=== PATIENT | male | born 1980 | race Caucasian/White ===

== ENCOUNTER 2019-06-09 14:58 | Outpatient (CLI) | payer OTHER, SELFPAY ==
[2019-06-09 17:32] LABS: Basophils Percent Auto 0.3 % (0.2-1.2); Eosinophils Absolute Auto 0.2 K/mm3 (0-0.3); Eosinophils Percent Auto 2.7 % (0-4.4); Hematocrit 46.9 % (42.0-52.0); Hemoglobin 15.6 g/dL (14.0-18.0); Immature Granulocyte Absolute 0.02 K/mm3 (0.00-0.031); Immature Granulocyte Percent A 0.3 % (0-0.5); Lymphocytes Absolute Auto 2.36 K/mm3 (0.9-3.2); Lymphocytes Percent Auto 33.9 % (18.3-44.2); Mean Corpuscular HGB Conc 33.3 g/dl (32-36); Mean Corpuscular Hemoglobin 30.1 pg (26-34); Mean Corpuscular Volume 90.5 fl (80-100); Mean Platelet Volume 9.7 fl (7.4-10.4); Monocytes Absolute Auto 0.6 K/mm3 (0.1-0.6); Monocytes Percent Auto 8.6 % (2.6-8.5); Neutrophils Absolute Auto 3.8 K/mm3 (1.3-6.7); Neutrophils Percent Auto 54.2 % (45.5-73.1); Platelet Count Result 245 k/mm3 (150-375); Red Blood Count 5.18 M/mm3 (4.6-6.20); Red Cell Distribution Width 12.3 % (11.5-14.5)
[2019-06-09 17:45] LABS: Alanine Aminotransferase 31 U/L (4-50); Albumin Level 5.1 g/dL (3.5-5.1); Alkaline Phosphatase 58 U/L (38-126); Aspartate Amino Transferase 33 U/L (17-59); Bilirubin,Total 0.5 mg/dL (0.2-1.3); Blood Urea Nitrogen 19 mg/dL (9-20); Calcium 9.6 mg/dL (8.4-10.2); Carbon Dioxide 29 mmol/L (22-30); Chloride 95 mmol/L (98-107); Cholesterol 157 mg/dL (0-200); Estimated Glomerular Filt Rate > 60; Glucose 97 mg/dL (75-110); HDL Direct 41 mg/dL; Potassium 4.5 mmol/L (3.4-5.0); Sodium 140 mmol/L (137-145); Triglycerides 165 mg/dL (<150)
[2019-06-09 17:55] LABS: LDL Cholesterol Direct 91 mg/dL
== END 2019-06-09 14:59 | disposition home or self-care (01) ==
LOC: ANHLAB 15:20
DX: N28.1 Cyst of kidney, acquired (principal); I10 Essential (primary) hypertension; E78.5 Hyperlipidemia, unspecified
CPT/HCPCS: 36415; 80053; 80061; 85025

== ENCOUNTER 2019-06-09 16:54 | Outpatient (CLI) | payer OTHER, SELFPAY ==
--- NOTE | ~2019-06-09 | US_ITS ---
US renal BI 06/09/2019 17:10 Procedure: Realtime transabdominal ultrasound of the kidneys and bladder. Indication: Renal cysts Comparison: No prior studies for comparison. Findings: Renal echotexture is normal bilaterally without hydronephrosis, contour deforming solid mas s or renal calculus. There is a right renal cyst measuring 3.7 x 3.7 x 3.1 cm The right kidney measur es 9.9 cm and left kidney measures 11.2 cm. Bladder within normal limits. Impression: 1: 3.7 cm right renal cyst. Reviewed, dictated and finalized at location A. 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
== END 2019-06-09 16:55 ==
DX: N28.1 Cyst of kidney, acquired (principal)
CPT/HCPCS: 76775

== ENCOUNTER 2019-06-15 12:42 | Emergency (ER) | payer OTHER, SELFPAY ==
--- NOTE | ~2019-06-15 | XR_ITS ---
EXAMINATION: XR chest 2V DATE: 06/15/2019 13:24 INDICATION: Chest pain. Shortness of breath. TECHNIQUE: Frontal and lateral views of the chest were obtained. COMPARISON: None. FINDINGS: The chest demonstrates clear lungs without pneumonia, pleural effusion, or pneumothorax. Th e heart size is normal. IMPRESSION: 1. No acute cardiopulmonary disease. Reviewed, dictated and finalized at location A. STANT PRINCIPAL
[2019-06-15 12:46] VITALS: BP 132/79; PULSE 75; RESP 20; TEMP 36.7; O2SAT 100
--- NOTE | 2019-06-15 12:47 | ED_ITS ---
I attest that this documentation has been prepared under the direction and in the presence of Gilmar Moncada MD. 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 sitting eating lunch and stood up everything went black fell and was caught and lowered to the floor chest tightness and SOB hx of syncopal episode - 6 years ago - cardio work up was normal recent hematuria 72-48 hours ago but has been clear for the past 48 hours lost 28lbs over the past 2 months - unplanned Dr. 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 Iyer in [facility] - supposed to see today Related Data Home Medications Medication Instructions Recorded Confirmed atenolol 50 mg PO DAILY 06/15/19 lisinopril 10 mg PO DAILY 06/15/19 Allergies Allergy/AdvReac Type Severity Reaction Status Date / Time Tetracyclines Allergy Rash Verified 06/15/19 12:54 [facility] Social History Social History Gender identity (if verbalized by the patient): Male Course Vital Signs Vital signs: Vital Signs Temperature 98.0 F 06/15/19 12:46 Pulse Rate 75 06/15/19 12:46 Respiratory Rate 06/15/19 12:46 Blood Pressure 132/79 06/15/19 12:46 Pulse Oximetry 100 06/15/19 12:46 Temperature 98.0 F 06/15/19 12:46 Pulse Rate 75 06/15/19 12:46 Respiratory Rate 06/15/19 12:46 Blood Pressure 132/79 06/15/19 12:46 Pulse Oximetry 100 06/15/19 12:46 Discharge Plan Discharge Prescriptions: No Action lisinopril 10 mg Tablet 10 mg PO DAILY RF: 0 atenolol 50 mg Tablet 50 mg PO DAILY RF: 0
--- NOTE | 2019-06-15 12:49 | ECG_ITS ---
Measurements Intervals [place] Rate: 56 P: 29 [place]: 240 QRS: 49 QRSD: 88 T: 46 QT: 379 QTc: 367 Interpretive Statements SINUS BRADYCARDIA WITH SINUS ARRHYTHMIA WITH FIRST DEGREE AV BLOCK ABNORMAL ECG Electronically Signed On 06-16-2019 6:50:01 CRYPTOGRAPHY TEACHER by Lebron Mitchell D.O.
[2019-06-15 13:11] LABS: Basophils Percent Auto 0.4 % (0.2-1.2); Eosinophils Absolute Auto 0.1 K/mm3 (0-0.3); Eosinophils Percent Auto 2.7 % (0-4.4); Hematocrit 45.6 % (42.0-52.0); Hemoglobin 15.2 g/dL (14.0-18.0); Immature Granulocyte Absolute 0.01 K/mm3 (0.00-0.031); Immature Granulocyte Percent A 0.2 % (0-0.5); Lymphocytes Percent Auto 31.6 % (18.3-44.2); Mean Corpuscular HGB Conc 33.3 g/dl (32-36); Mean Corpuscular Volume 89.9 fl (80-100); Monocytes Absolute Auto 0.3 K/mm3 (0.1-0.6); Monocytes Percent Auto 6.5 % (2.6-8.5); Neutrophils Absolute Auto 2.8 K/mm3 (1.3-6.7); Neutrophils Percent Auto 58.6 % (45.5-73.1); Platelet Count Result 229 k/mm3 (150-375); Red Blood Count 5.07 M/mm3 (4.6-6.20); Red Cell Distribution Width 12.2 % (11.5-14.5); White Blood Count 4.8 K/mm3 (4.5-10.0)
[2019-06-15 13:22] LABS: Blood Urea Nitrogen 18 mg/dL (9-20); Calcium 9.1 mg/dL (8.4-10.2); Carbon Dioxide 28 mmol/L (22-30); Chloride 96 mmol/L (98-107); Estimated CRCL calculation 107 ml/min; Estimated Glomerular Filt Rate > 60; Glucose 158 mg/dL (75-110); INR 0.9; Potassium 4.4 mmol/L (3.4-5.0); Prothrombin Time 12.3 Seconds (11.1-14.7); Sodium 137 mmol/L (137-145)
[2019-06-15 13:23] LABS: Partial Thromboplastin Time 28.3 SECONDS (22.3-36.8)
[2019-06-15] MEDS: KETOROLAC 30 MG/ML VIAL (*BKC) IV PUSH (13:27)
[2019-06-15 13:28] LABS: D Dimer 0.27 ug/mL (<0.48)
[2019-06-15 13:34] LABS: NT Pro B Type Natriuretic Pept 73 PG/ML (5-100); Troponin I < 0.012 ng/mL (0.000-0.034)
--- NOTE | 2019-06-15 13:55 | ED.SYNCOPE ---
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 He states that he had just finished eating lunch and when he stood up he became lightheaded, his heart began to race, and then his vision became black for a few seconds, so his caught him and lowered him to the floor. He reports that immediately after he developed chest tightness, SOB, and that he has continued to have intermittent lightheadedness and heart racing with his vision fading in and out. He notes that he has a hx of syncopal episodes, the most recent being 1.5 months ago. He states that 3 days ago he had multiple episodes of hematuria but that they have resolved. He also reports that for the past 2 months he has been felling more fatigued and that he has lost 29lbs unintentionally during this time. He denies any sinus congestion, sore throat, ABD pain, or leg edema. MD complaint: almost passed out Onset (ago): minute(s) -: second(s) Prodromal symptoms: vision changes (vision went black), lightheaded, heart racing and other (fatigue and lost 29lbs in 2 months, hematuria (resolved)) Witnessed: Yes - by Bystander () Context: standing up (after eating) Injuries sustained associated with event: none Current symptoms: lightheaded (intermittnet), chest pain (tightness), shortness of breath and other (fatigue, intermittent heart racing and vision fading in and out) History: previous syncopal episode Treatments prior to arrival: none Related Data Home Medications Medication Instructions Recorded Confirmed atenolol 50 mg PO DAILY 06/15/19 lisinopril 10 mg PO DAILY 06/15/19 Allergies Allergy/AdvReac Type Severity Reaction Status Date / Time Tetracyclines Allergy Rash Verified 06/15/19 12:54 Review of Systems Review of Systems: All systems reviewed & are unremarkable except as noted in HPI and below Constitutional: Constitutional: Reports fatigue and Reports weight loss (29lbs in 2 months) Eyes: Eyes: Reports loss of vision (intermittent) ENT: Denies nasal congestion and Denies sore throat Cardiovascular: Cardiovascular: Reports chest pain (tightness), Denies leg edema, Reports lightheadedness (intermittent) and Reports palpitations (intermittent) Respiratory: Respiratory: Reports dyspnea Gastrointestinal: Gastrointestinal: Denies abdominal pain Genitourinary: Genitourinary: Reports hematuria (resolved) [facility] Past Medical History Medical History First degree heart block H/O: HTN (hypertension) Renal cyst Syncopal episodes Tachycardia Surgical History Surgical History No history of previous surgery Social History Social History (Updated 06/15/19 @ 14:35 by Joe Grant) Smoking status: Never smoker Gender identity (if verbalized by the patient): Male Exam Narrative: Exam Narrative: GENERAL: Well-appearing, well-nourished, and in no acute distress. HEAD: Normocephalic, atraumatic. EYES: PERRLA and EOMI. ENT: Mucous membranes moist. Normal posterior oropharynx. TM's normal bilaterally. CHEST: Clear to auscultation. No respiratory distress. HEART: Regular rate and rhythm. Normal peripheral pulses. ABDOMEN: Soft, nontender, nondistended. EXTREMITIES: Normal range of motion. No edema. SKIN: Warm, dry, no rash. NEURO: Alert and oriented x3. Course Course Emergency Course: Patient had an episode of brief racing heart and dizziness with movement in his visual field when going from laying to sitting. That lasted for only a couple seconds. There is no ectopy on monitor or extreme tachycardia. Patient was given meclizine. He has been able to get up and ambulat
[2019-06-15] MEDS: MECLIZINE HCL 25 MG TABLET PO (14:08)
[2019-06-15 14:23] VITALS: BP 135/88; PULSE 72; RESP 14; O2SAT 100
[2019-06-15 14:33] VITALS: PULSE 70
[2019-06-15 14:46] LABS: Add Urine Microscopic? NO; Appearance Urine Clear (Clear); Bilirubin Urine Negative (Negative); Blood Urine Negative (Negative); Color Urine Yellow (Yellow); Glucose Urine UA Negative (Negative); Ketones Urine Negative (Negative); Leukocyte Esterase Ur Negative LEU/UL (Negative); Nitrate Urine Negative (Negative); Protein Urine Negative (Negative); Specific Grav Ur 1.015 (1.001-1.035); Urobilinogen Urine Negative mg/dL (<2.0)
[2019-06-15 15:19] LABS: Thyroid Stimulating Hormone Reflex 0.939 uIU/mL (0.465-4.68)
== END 2019-06-15 16:09 | disposition home or self-care (01) ==
PROVIDERS: Emergency Provider Emergency Medicine
DX: R42 Dizziness and giddiness (principal); R07.89 Other chest pain; R00.1 Bradycardia, unspecified; I10 Essential (primary) hypertension
CPT/HCPCS: 36415; 71046; 80048; 81003; 83880; 84443; 84484; 85025; 85380; 85610; 85730; 93005; 96374; 99284; A9270; J1885

== ENCOUNTER 2019-06-17 14:55 | Emergency (ER) | payer OTHER, SELFPAY ==
--- NOTE | ~2019-06-17 | CT_ITS ---
EXAMINATION: CTA chest PE protocol DATE: 06/17/2019 15:59 INDICATION: Sternal chest tightness TECHNIQUE: Computed tomography angiography (CTA) of the chest was performed with 100 mL Omnipaque-350 intravenous contrast timed to evaluate the pulmonary arteries. Coronal maximum intensity projection 3D-reconstructions were created by the technologist. The dose-length product (DLP) was 498.92 mGy-cm. Automated exposure control and iterative reconstruction technique were employed. COMPARISON: None. FINDINGS: The pulmonary arteries are well-opacified. No pulmonary embolism is identified. There is mi ld dependent atelectasis. No focal airspace opacity is identified. There is no pleural effusion or pn eumothorax. No pathologically enlarged thoracic lymph nodes are identified. The heart size is normal. There is a 4.5 cm cyst of the right kidney. IMPRESSION: 1. No pulmonary embolism. 2. Mild atelectasis. Reviewed, dictated and finalized at location A. PROCESSING SUPERVISOR
[2019-06-17 15:11] VITALS: BP 134/66; PULSE 73; RESP 18; TEMP 36.7; O2SAT 99
[2019-06-17 15:15] VITALS: PULSE 77
--- NOTE | 2019-06-17 15:24 | ED.CHESTPAIN ---
HPI - Chest Pain General Chief Complaint: Chest Pain Stated Complaint: cp/sob Time Seen by Provider: 06/17/19 15:17 Source: patient Mode of arrival: ambulatory Limitations: no limitations History of Present Illness HPI narrative: Pt is a 38 y/o male who presents to the ED with c/o mid sternum CP that radiates to his rt arm for 2 days. He reports associated SOB. Pt was seen in the ED 2 days ago for the same complaint. He states that he has continued chest tightness, but he denies fever or a cough. Pt has a H/o HTN and SVT syndrome. 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 Pt denies a H/o PE or anxiety. He states that he had a ultrasound of his rt kidney that showed a renal cyst at 3.7cm that has increased since he was 23 y/o. complaint: chest pain Onset (ago): day(s) (2) Prior episodes: Yes Pain location: substernal Pain radiation: right arm Quality: tightness Associated symptoms: dyspnea Related Data Home Medications Medication Instructions Recorded Confirmed atenolol 50 mg PO DAILY 06/15/19 lisinopril 10 mg PO DAILY 06/15/19 Allergies Allergy/AdvReac Type Severity Reaction Status Date / Time Tetracyclines Allergy Rash Verified 06/17/19 15:18 Review of Systems Review of Systems: All systems reviewed & are unremarkable except as noted in HPI and below Constitutional: Constitutional: Denies fever(s) Cardiovascular: Cardiovascular: Reports chest pain Respiratory: Respiratory: Denies cough and Reports dyspnea PMFSH Past Medical History Medical History First degree heart block H/O: HTN (hypertension) Renal cyst Syncopal episodes Tachycardia Surgical History Surgical History No history of previous surgery Social History Social History Smoking status: Never smoker Gender identity (if verbalized by the patient): Male Exam Narrative: Exam Narrative: GENERAL: Well-appearing, well-nourished, and in no acute distress. HEAD: Normocephalic, atraumatic. EYES: PERRLA and EOMI. ENT: Nares clear, Mucous membranes moist. NECK: Supple. CHEST: Clear to auscultation. No respiratory distress. HEART: Regular rate and rhythm. No murmur heard. Normal peripheral pulses. ABDOMEN: Soft, nontender, nondistended, normal active bowel sounds. EXTREMITIES: Normal range of motion. No edema. SKIN: Warm, dry, no rash. NEURO: No focal deficits. Alert and oriented x3. PSYCH: Normal mood and affect. Course Course Emergency Course: Inform patient about his lab work, CT findings. Patient is been on the monitor for approximately 2 hours or so been in normal sinus rhythm with a heart rate between 60s and 70s I advised him to continue his home medication, follow-up with cardiology in the next few days. Regarding his renal cyst I advised him to continue to monitor and follow-up with the urologist as needed Vital Signs Vital signs: Vital Signs Temperature 36.7 C 06/17/19 15:11 Pulse Rate 73 06/17/19 15:11 Respiratory Rate 18 06/17/19 15:11 Blood Pressure 134/66 06/17/19 15:11 Pulse Oximetry 99 06/17/19 15:11 Temperature 36.7 C 06/17/19 15:11 Pulse Rate 64 06/17/19 16:36 Respiratory Rate 18 06/17/19 16:36 Blood Pressure 111/65 06/17/19 16:36 Pulse Oximetry 96 06/17/19 16:36 MDM - Chest Pain Lab Data Result diagrams: 06/17/19 15:44 06/17/19 15:44 Labs: Lab Results 06/17/19 06/17/19 06/17/19 Range/Units 15:44 15:44 15:44 WBC 5.3 (4.5-10.0) K/mm3 RBC 4.93 (4.6-6.20) M/mm3 Hgb 15.1 (14.0-18.0) g/dL Hct 43.7 (42.0-52.0) % MCV 88.6 (80-100) fl MCH 30.6 (26-34) pg MCHC 34.6 (32-36) g/dl RDW 12.2 (11.5-14.5) % Plt Count 229 (150-375) k/mm3 MPV 10.0 (7.4-10.4) fl Immature Gran % (Auto) 0.0 (0-0.5) % Neut % (Auto) 48.0 (45.5-73.
[2019-06-17 15:48] LABS: Basophils Percent Auto 0.6 % (0.2-1.2); Eosinophils Absolute Auto 0.2 K/mm3 (0-0.3); Eosinophils Percent Auto 3.2 % (0-4.4); Hematocrit 43.7 % (42.0-52.0); Hemoglobin 15.1 g/dL (14.0-18.0); Lymphocytes Absolute Auto 1.98 K/mm3 (0.9-3.2); Lymphocytes Percent Auto 37.4 % (18.3-44.2); Mean Corpuscular HGB Conc 34.6 g/dl (32-36); Mean Corpuscular Hemoglobin 30.6 pg (26-34); Mean Corpuscular Volume 88.6 fl (80-100); Monocytes Absolute Auto 0.6 K/mm3 (0.1-0.6); Monocytes Percent Auto 10.8 % (2.6-8.5); Neutrophils Absolute Auto 2.6 K/mm3 (1.3-6.7); Platelet Count Result 229 k/mm3 (150-375); Red Blood Count 4.93 M/mm3 (4.6-6.20); Red Cell Distribution Width 12.2 % (11.5-14.5); White Blood Count 5.3 K/mm3 (4.5-10.0)
[2019-06-17 15:58] LABS: INR 0.9; Prothrombin Time 12.3 Seconds (11.1-14.7)
[2019-06-17 16:01] LABS: Blood Urea Nitrogen 18 mg/dL (9-20); Calcium 9.1 mg/dL (8.4-10.2); Carbon Dioxide 27 mmol/L (22-30); Chloride 100 mmol/L (98-107); Estimated CRCL calculation 98 ml/min; Estimated Glomerular Filt Rate > 60; Glucose 96 mg/dL (75-110); Potassium 3.8 mmol/L (3.4-5.0); Sodium 140 mmol/L (137-145)
[2019-06-17 16:13] LABS: Troponin I < 0.012 ng/mL (0.000-0.034)
--- NOTE | 2019-06-17 16:16 | ECG_ITS ---
Measurements Intervals [place] Rate: 74 P: 45 [place]: 201 QRS: 44 QRSD: 89 T: 55 QT: 364 QTc: 404 Interpretive Statements SINUS RHYTHM WITH SINUS ARRHYTHMIA NORMAL ECG Electronically Signed On 06-17-2019 18:32:15 VENEER REPAIRER MACHINE by Lebron Mitchell D.O.
[2019-06-17 16:27] LABS: D Dimer 0.27 ug/mL (<0.48)
[2019-06-17 16:36] VITALS: BP 111/65; PULSE 64; RESP 18; O2SAT 96
[2019-06-17 17:01] VITALS: BP 111/65; PULSE 76; RESP 18; O2SAT 96
== END 2019-06-17 17:03 | disposition home or self-care (01) ==
PROVIDERS: Emergency Provider Family Medicine
DX: R07.89 Other chest pain (principal); R00.2 Palpitations; I10 Essential (primary) hypertension; N28.1 Cyst of kidney, acquired; R94.31 Abnormal electrocardiogram [ECG] [EKG]; R91.8 Other nonspecific abnormal finding of lung field
CPT/HCPCS: 36415; 71275; 80048; 84484; 85025; 85380; 85610; 93005; 99284; Q9967

== ENCOUNTER 2019-06-27 07:24 | Outpatient (CLI) | payer OTHER, SELFPAY ==
--- NOTE | ~2019-06-27 | CT_ITS ---
EXAMINATION: CT abdomen w con DATE: 06/27/2019 08:08 INDICATION: Adrenal medullary hyperfunction TECHNIQUE: Computed tomography (CT) of the abdomen was performed with 100 cc Omnipaque 350 intravenou s contrast. Automated exposure control and iterative reconstruction technique were employed. Exam dos e: 240.21 mGy-cm total exam DLP. COMPARISON: None. FINDINGS: Normal heart size. No pericardial or pleural effusion. The lung bases are clear of infiltra te or consolidation. Occasional small hepatic probable cysts, the largest approximately 11 mm. Approximately 4.3 cm upper pole right renal cyst. The liver, spleen, pancreas and adrenal glands othe rwise are unremarkable. No adrenal mass lesion or hypertrophy is noted. The gallbladder is unremarkable. No bile duct or pancreatic duct dilatation. Normal caliber of the abdominal aorta. No intraperitoneal or retroperitoneal mass lesion or adenopath y or ascites. No bowel obstruction or intraperitoneal free air. There is deformity of L4 vertebral body apparently due to old burst fracture, with herniated disc mat erial posterosuperiorly and compromise of the AP dimension of the spinal canal at the upper L4 level. IMPRESSION: No adrenal mass lesion or hypertrophy is noted Occasional small hepatic probable cysts 4.3 cm upper pole right renal cyst Old L4 burst fracture deformity Reviewed, dictated and finalized at Location A. Reviewed, dictated and finalized at location B.
[2019-06-30 09:47] LABS: Metanephrine, Free 29 pg/mL (<=57); Normetanephrine, Free 89 pg/mL (<=148); Total, Free (MN + NMN) 118 pg/mL (<=205)
[2019-06-30 14:02] LABS: Catecholamines, Total 355 pg/mL
== END 2019-06-27 07:25 | disposition home or self-care (01) ==
DX: E27.5 Adrenomedullary hyperfunction (principal); K76.89 Other specified diseases of liver; N28.1 Cyst of kidney, acquired; Z87.81 Personal history of (healed) traumatic fracture
CPT/HCPCS: 36415; 74160; 82384; 83835; Q9967

== ENCOUNTER 2022-11-16 21:22 | Emergency (ER) | payer OTHER, SELFPAY ==
--- NOTE | 2022-11-16 21:17 | ECG_ITS ---
Measurements Intervals [place] Rate: 85 P: 45 DC: 209 QRS: 39 QRSD: 87 T: 55 QT: 324 QTc: 387 Interpretive Statements SINUS RHYTHM WITH MARKED SINUS ARRHYTHMIA WITH FIRST DEGREE AV BLOCK BASELINE ARTIFACT- I, V1, V5 BORDERLINE ECG COMPARED TO ECG 06/17/2019 15:00:08 NO SIGNIFICANT CHANGES Electronically Signed On 11-17-2022 8:56:41 CDT by Lebron Mitchell D.O.
--- NOTE | 2022-11-16 22:11 | PC.NURSE ---
Patient called twice, no answer. Patient marked as left without being seen, triaged.
== END 2022-11-17 21:50 | disposition left against medical advice (07) ==
LOC: ANHED 11-19 10:09
PROVIDERS: Emergency Provider Internal Medicine Cardiovascular Disease
DX: R07.2 Precordial pain (principal)
CPT/HCPCS: 93005; 99199